=== PATIENT | male | born 2000 | race African-American/Black ===

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

== ENCOUNTER 2020-11-16 16:48 | Inpatient (IN) ==
[2020-11-16 17:38] LABS: Basophils # (auto) 0.01 K/uL (0-0.2); Basophils % (auto) 0.1 %; Eosinophils # (auto) 0.03 K/uL (0-0.5); Eosinophils % (auto) 0.4 %; Hematocrit (blood only) 41.6 % (42-52); Immature Granulocytes # (auto) 0.01 K/uL (0.00-0.02); Immature Granulocytes % (auto) 0.1 %; Lymphocytes # (auto) 0.91 K/uL (1.2-3.4); Lymphocytes % (auto) 11.3 %; Mean Corpuscular Hemoglobin 31.7 pg (25-34); Mean Corpuscular Hgb Conc 36.1 g/dL (32-36); Mean Corpuscular Volume 87.9 fL (80-100); Mean Platelet Volume 11.3 fL (7.4-10.4); Monocytes # (auto) 0.47 K/uL (0.11-0.59); Monocytes % (auto) 5.8 %; Neutrophils # (auto) 6.63 K/uL (1.4-6.5); Neutrophils % (auto) 82.3 %; Platelet Count 183 K/uL (130-400); RDW Coefficient of Variation 11.9 % (11.5-14.5); RDW Standard Deviation 38.3 fL (36.4-46.3); Red Blood Count 4.73 M/uL (4.7-6.1); White Blood Count 8.06 K/uL (4.8-10.8)
--- NOTE | 2020-11-16 17:44 | Emergency Department Note ---
Impression & Plan Mood disorder, High serum chloride ED Provider Note NAME: MARQUIS ROMERO AGE: 20 SEX: M : 2000 ARRIVES VIA: [employer] INFORMANT: Patient ED PROVIDER(S): Campos Meeks DO CHIEF COMPLAINT: Mood disorder HPI: Patient is a 20-year-old male who presents to ER for mood disorder. He notes that he lives with his ex-girlfriend. They have been together for 5 years. The past 2 have not been great for him. He notes that tonight he helped take her car out. She tried to leave and get stuck again. She left her apple watch in the apartment. When he went back up he got into the apple watch and she noticed it. She became extremely upset and escalated from there. She called her family and informed them of what happened. He was very upset as he wanted to continue to have some sort of relationship with her even though they are broken up. He has a history of severe depression. He notes he grabbed a knife and was going to cut his forearm so he could feel pain. Adamantly denies wanting to kill himself. Later we were informed from the girlfriend that he wrote a suicide note. He eventually elaborated stating that he did have a plan and did discuss medications that he would take. ROS: See above HPI for pertinent positives & negatives. A total of 10 systems reviewed and were otherwise negative. PAST MEDICAL HISTORY:See Below PAST SURGICAL HISTORY:See Below FAMILY HISTORY:See Below SOCIAL HISTORY:See Below HOME MEDICATIONS:See Below ALLERGIES:See Below VITALS:See Below PHYSICAL EXAMINATION: GENERAL: Sitting up in bed, alert, well appearing, well nourished, no distress, non-toxic EYE EXAM: normal conjunctiva. OROPHARYNX: no exudate, no erythema, lips, buccal mucosa, and tongue normal and mucous membranes are moist NECK: supple, no nuchal rigidity, no adenopathy, non-tender LUNGS: Clear to auscultation. Normal chest wall mechanics HEART: no murmurs, S1 normal and S2 normal ABDOMEN: abdomen soft, non-tender, normo-active bowel sounds, no masses, no rebound or guarding. BACK: Back is symmetrical on inspection and there is no deformity, no midline tenderness, no CVA tenderness. SKIN: no rashes and no bruising UPPER EXTREMITIES: upper extremities are grossly normal. LOWER EXTREMITIES: No pitting edema. NEURO EXAM: Normal sensorium, cranial nerves II-XII grossly intact, normal speech, no gross weakness of arms, no gross weakness of legs. PSYCH: Denies any suicidal homicidal ideations. Denies any auditory or visual h allucinations. Admits to a thought of wanting to hurt himself to feel pain MEDICAL DECISION MAKING: Patient is a 20-year-old male who got into an argument with his ex-girlfriend who he lives with and wrote a suicide note. He was brought in willingly by police. We were initially unaware the suicide note until the girlfriend called in and notified of this and then he did inform us of this. Initially denied any suicidal homicidal ideations. No auditory visual hallucinations. Labs show no significant leukocytosis or anemia. BMP with slightly elevated chloride. LFTs bilirubin TSH was unremarkable. UA was negative. Tox was negative. Covid was negative. Patient was seen and evaluated and accepted 3 S. on 0201. Triage Nursing notes reviewed. Prior medical records reviewed Vital Signs: reviewed and remarkable for tachy Differential diagnosis: Mood disorder, infection, hypoglycemia, electrolyte abnormalities, cardiac sources, intracerebral event, toxicologic, trauma, neurologic, as well as other pathologies. ER treatment provided: See below Diagnostics interpreted by me: ECG: none Laboratory studies: As stated above and show below. Imaging studies: See below Consultation(s): none ED COURSE: Procedures: none Critical Care: None Past Med/Surg History Social History Smoking Status: Never smoker Feels Safe at Home: Yes Allergies Allergies Allergy/AdvReac Type Severity Reaction Status Date / Time No Known Drug Allergies Allergy Unknown . Verified 07/13/18 18:04 Home Meds Home Medications Medication Instructions Recorded Confirmed escitalopram oxalate [Lexapro] 10 mg PO DAILY 11/16/20 11/16/20 Results & Data (ED) Vital Signs Vital Signs - 24 hr 11/16/20 16:58 11/16/20 18:42 Temperature 37.2 C Temperature Source Oral Pulse Rate 111 H Pulse Rate [Apical] 98 H Respiratory Rate 18 18 Blood Pressure 108/66 Blood Pressure [Left Arm] 112/70 Blood Pressure Mean 80 Blood Pressure Mean [Left Arm] 84 Pulse Oximetry 96 100 Oxygen Delivery Method Room Air Room Air Sepsis Recent Fever Within 48 Hours No Sepsis New/Unexplained Change in Mental Status No Sepsis Action Taken by Nursing No Action Required Laboratory Data Result diagrams: 11/16/20 17:19 11/16/20 17:19 Lab Results 11/16/20 11/16/20 11/16/20 Range/Units 17:19 17:19 17:19 WBC 8.06 (4.8-10.8) K/uL RBC 4.73 (4.7-6.1) M/uL Hgb 15.0 (14.0-18.0) g/dL Hct 41.6 L (42-52) % MCV 87.9 (80-100) fL MCH 31.7 (25-34) pg MCHC 36.1 H (32-36) g/dL RDW Std Deviation 38.3 (36.4-46.3) fL RDW Coeff of Jay 11.9 (11.5-14.5) % Plt Count 183 (130-400) K/uL MPV 11.3 H (7.4-10.4) fL Immature Gran % (Auto) 0.1 % Neut % (Auto) 82.3 % Lymph % (Auto) 11.3 % [place] % (Auto) 5.8 % Eos % (Auto) 0.4 % Baso % (Auto) 0.1 % Neut # (Auto) 6.63 H (1.4-6.5) K/uL Lymph # (Auto) 0.91 L (1.2-3.4) K/uL [place] # (Auto) 0.47 (0.11-0.59) K/uL Eos # (Auto) 0.03 (0-0.5) K/uL Baso # (Auto) 0.01 (0-0.2) K/uL Immature Gran # (Auto) 0.01 (0.00-0.02) K/uL Sodium 142 (136-145) mmol/L Potassium 3.8 (3.5-5.1) mmol/L Chloride 108 H (98-107) mmol/L Carbon Dioxide 29 (21-32) mmol/L Anion Gap 5.0 (3-11) BUN 12 (7-18) mg/dl Creatinine 0.95 (0.6-1.4) mg/dl Est Cr Clr Drug Dosing 135.0 ml/min Est GFR ( Amer) 132.1 Est GFR (Non-Af Amer) 114.0 BUN/Creatinine Ratio 12.5 (10-20) Glucose 101 H (70-99) mg/dl Calcium 9.1 (8.5-10.1) mg/dl Total Bilirubin 0.4 (0.2-1) mg/dl AST 12 L (15-37) U/L ALT 27 (12-78) U/L Alkaline Phosphatase 76 (45-117) U/L Total Protein 7.8 (6.4-8.2) gm/dl Albumin 4.5 (3.4-5.0) gm/dl Globulin 3.3 (2.5-4.0) gm/dl Albumin/Globulin Ratio 1.4 (0.9-2) TSH 1.200 (0.300-4.500) uIu/ml Urine Color Urine Appearance (Clear) Urine pH (4.5-7.5) Ur Specific [place] (1.000-1.030) Urine Protein (Negative) Urine Glucose (UA) (Negative) Urine Ketones (Negative) Urine Blood (Negative) Urine Nitrite (Negative) Urine Bilirubin (Negative) Urine Urobilinogen (Negative) Ur Leukocyte Esterase (Negative) Urine WBC (Auto) (0-5) /hpf Urine RBC (Auto) (0-4) /hpf U Hyaline Cast (Auto) (0-5) /lpf U Epithel Cells (Auto) (0-5) /lpf Urine Bacteria (Auto) (Negative) Salicylates < 1.7 L (2.8-20) mg/dl Urine Opiates Screen (Neg) Ur Methadone, Qual (Neg) Acetaminophen < 2 L (10-30) ug/ml Urine Barbiturates (Neg) Ur Phencyclidine (PCP) (Neg) U Amphetamin/Meth Scrn (Neg) MDMA (Ecstasy) Screen (Neg) U Benzodiazepines Scrn (Neg) Ur Cocaine Metabolite (Neg) U Marijuana (THC) Screen (Neg) Ethyl Alcohol mg/dL (0-3) mg/dl SARS-CoV-2 Ag (Rapid) (Negative) 11/16/20 11/16/20 11/16/20 Range/Units 17:19 17:40 17:40 WBC (4.8-10.8) K/uL RBC (4.7-6.1) M/uL Hgb (14.0-18.0) g/dL Hct (42-52) % MCV (80-100) fL MCH (25-34) pg MCHC (32-36) g/dL RDW Std Deviation (36.4-46.3) fL RDW Coeff of Jay (11.5-14.5) % Plt Count (130-400) K/uL MPV (7.4-10.4) fL Immature Gran % (Auto) % Neut % (Auto) % Lymph % (Auto) % [place] % (Auto) % Eos % (Auto) % Baso % (Auto) % Neut # (Auto) (1.4-6.5) K/uL Lymph # (Auto) (1.2-3.4) K/uL [place] # (Auto) (0.11-0.59) K/uL Eos # (Auto) (0-0.5) K/uL Baso # (Auto) (0-0.2) K/uL Immature Gran # (Auto) (0.00-0.02) K/uL Sodium (136-145) mmol/L Potassium (3.5-5.1) mmol/L Chloride (98-107) mmol/L Carbon Dioxide (21-32) mmol/L Anion Gap (3-11) BUN (7-18) mg/dl Creatinine (0.6-1.4) mg/dl Est Cr Clr Drug Dosing ml/min Est GFR ( Amer) Est GFR (Non-Af Amer) BUN/Creatinine Ratio (10-20) Glucose (70-99) mg/dl Calcium (8.5-10.1) mg/dl Total Bilirubin (0.2-1) mg/dl AST (15-37) U/L ALT (12-78) U/L Alkaline Phosphatase (45-117) U/L Total Protein (6.4-8.2) gm/dl Albumin (3.4-5.0) gm/dl Globulin (2.5-4.0) gm/dl Albumin/Globulin Ratio (0.9-2) TSH (0.300-4.500) uIu/ml Urine Color Dark Yellow Urine Appearance Clear (Clear) Urine pH 6.5 (4.5-7.5) Ur Specific [place] 1.035 H (1.000-1.030) Urine Protein Trace H (Negative) Urine Glucose (UA) Negative (Negative) Urine Ketones Trace H (Negative) Urine Blood Negative (Negative) Urine Nitrite Negative (Negative) Urine Bilirubin Negative (Negative) Urine Urobilinogen Negative (Negative) Ur Leukocyte Esterase Negative (Negative) Urine WBC (Auto) 1-5 (0-5) /hpf Urine RBC (Auto) 0-4 (0-4) /hpf U Hyaline Cast (Auto) 10-30 H (0-5) /lpf U Epithel Cells (Auto) 20-30 H (0-5) /lpf Urine Bacteria (Auto) Negative (Negative) Salicylates (2.8-20) mg/dl Urine Opiates Screen Neg (Neg) Ur Methadone, Qual Neg (Neg) Acetaminophen (10-30) ug/ml Urine Barbiturates Neg (Neg) Ur Phencyclidine (PCP) Neg (Neg) U Amphetamin/Meth Scrn Neg (Neg) MDMA (Ecstasy) Screen Neg (Neg) U Benzodiazepines Scrn Neg (Neg) Ur Cocaine Metabolite Neg (Neg) U Marijuana (THC) Screen Neg (Neg) Ethyl Alcohol mg/dL < 3.0 (0-3) mg/dl SARS-CoV-2 Ag (Rapid) (Negative) 11/16/20 Range/Units 19:38 WBC (4.8-10.8) K/uL RBC (4.7-6.1) M/uL Hgb (14.0-18.0) g/dL Hct (42-52) % MCV (80-100) fL MCH (25-34) pg MCHC (32-36) g/dL RDW Std Deviation (36.4-46.3) fL RDW Coeff of Jay (11.5-14.5) % Plt Count (130-400) K/uL MPV (7.4-10.4) fL Immature Gran % (Auto) % Neut % (Auto) % Lymph % (Auto) % [place] % (Auto) % Eos % (Auto) % Baso % (Auto) % Neut # (Auto) (1.4-6.5) K/uL Lymph # (Auto) (1.2-3.4) K/uL [place] # (Auto) (0.11-0.59) K/uL Eos # (Auto) (0-0.5) K/uL Baso # (Auto) (0-0.2) K/uL Immature Gran # (Auto) (0.00-0.02) K/uL Sodium (136-145) mmol/L Potassium (3.5-5.1) mmol/L Chloride (98-107) mmol/L Carbon Dioxide (21-32) mmol/L Anion Gap (3-11) BUN (7-18) mg/dl Creatinine (0.6-1.4) mg/dl Est Cr Clr Drug Dosing ml/min Est GFR ( Amer) Est GFR (Non-Af Amer) BUN/Creatinine Ratio (10-20) Glucose (70-99) mg/dl Calcium (8.5-10.1) mg/dl Total Bilirubin (0.2-1) mg/dl AST (15-37) U/L ALT (12-78) U/L Alkaline Phosphatase (45-117) U/L Total Protein (6.4-8.2) gm/dl Albumin (3.4-5.0) gm/dl Globulin (2.5-4.0) gm/dl Albumin/Globulin Ratio (0.9-2) TSH (0.300-4.500) uIu/ml Urine Color Urine Appearance (Clear) Urine pH (4.5-7.5) Ur Specific [place] (1.000-1.030) Urine Protein (Negative) Urine Glucose (UA) (Negative) Urine Ketones (Negative) Urine Blood (Negative) Urine Nitrite (Negative) Urine Bilirubin (Negative) Urine Urobilinogen (Negative) Ur Leukocyte Esterase (Negative) Urine WBC (Auto) (0-5) /hpf Urine RBC (Auto) (0-4) /hpf U Hyaline Cast (Auto) (0-5) /lpf U Epithel Cells (Auto) (0-5) /lpf Urine Bacteria (Auto) (Negative) Salicylates (2.8-20) mg/dl Urine Opiates Screen (Neg) Ur Methadone, Qual (Neg) Acetaminophen (10-30) ug/ml Urine Barbiturates (Neg) Ur Phencyclidine (PCP) (Neg) U Amphetamin/Meth Scrn (Neg) MDMA (Ecstasy) Screen (Neg) U Benzodiazepines Scrn (Neg) Ur Cocaine Metabolite (Neg) U Marijuana (THC) Screen (Neg) Ethyl Alcohol mg/dL (0-3) mg/dl SARS-CoV-2 Ag (Rapid) Negative (Negative) Discharge Plan Visit Data Chief Complaint: Mental Health Evaluation Stated Complaint: [facility] ED Provider: Campos Meeks Discharge Problem: Mood disorder, High serum chloride Forms Stand Alone Forms: My [facility], Suicide Prevention Resources Prescriptions Prescriptions: No Action escitalopram oxalate [Lexapro] 10 mg tablet 10 mg PO DAILY RF: 0
[2020-11-16 17:58] LABS: Appearance Urine Clear (Clear); Bacteria Urine Automated Negative (Negative); Blood Urine Negative (Negative); Color Urine Dark Yellow; Epithelial Cell Urine Auto 20-30 /lpf (0-5); Glucose Urine UA Negative (Negative); Ketones Urine Trace (Negative); Leukocyte Esterase Urine Negative (Negative); Nitrite Urine Negative (Negative); Protein Urine Trace (Negative); RBC Urine Automated 0-4 /hpf (0-4); Specific Gravity Urine 1.035 (1.000-1.030); Urobilinogen Urine Negative (Negative); pH Urine 6.5 (4.5-7.5)
[2020-11-16 17:58] LABS: Albumin Level 4.5 gm/dl (3.4-5.0); BUN Creatinine Ratio 12.5 (10-20); Calcium 9.1 mg/dl (8.5-10.1); Est GFR (African American) 132.1; Potassium 3.8 mmol/L (3.5-5.1)
[2020-11-16 18:05] LABS: Bilirubin Urine Negative (Negative); Ictotest Urine Negative (Negative)
[2020-11-16 18:09] LABS: Albumin Globulin Ratio 1.4 (0.9-2); Bilirubin,Total 0.4 mg/dl (0.2-1); Globulin 3.3 gm/dl (2.5-4.0); Thyroid Stimulating Hormone 1.2 uIu/ml (0.300-4.500); Total Protein 7.8 gm/dl (6.4-8.2)
[2020-11-16 18:11] LABS: Acetaminophen < 2 ug/ml (10-30); Salicylate < 1.7 mg/dl (2.8-20)
[2020-11-16 18:25] LABS: Amphetamines+Metham, Urine Neg (Neg); Barbiturates, Urine Neg (Neg); Benzodiazepine, Urine Neg (Neg); Cocaine, Urine Neg (Neg); MDMA (Ecstacy), Urine Neg (Neg); Methadone, Urine Neg (Neg); Opiate, Urine Neg (Neg); Phencyclidine, Urine Neg (Neg)
[2020-11-16] MEDS ORDERED: ACETAMINOPHEN 325 MG TAB PO PRN (22:04)
[2020-11-16] MEDS ORDERED: hydrOXYzine HCl 25 MG TAB PO PRN ×2 (22:04)
[2020-11-16] MEDS ORDERED: SODIUM CHLORIDE 0.65% NA SOLN 45 ML (OCEAN) PRN (22:04)
[2020-11-16] MEDS ORDERED: BISMUTH SUBSALICYLATE LIQD 236 ML PO PRN (22:04)
[2020-11-16] MEDS ORDERED: ALUMINUM/MAGNESIUM SUSP 30 ML UDC PO PRN (22:04)
[2020-11-16] MEDS ORDERED: MAGNESIUM HYDROXIDE SUSP 30 ML UDC PO PRN (22:04)
[2020-11-16] MEDS ORDERED: ESCITALOPRAM OXALATE 10 MG TAB PO SCH (22:30)
--- NOTE | 2020-11-17 13:12 | History & Physical ---
Date of Service November 17, 2020 Impression / Recommendations Impression This 20-year-old college senior reports a long history of recurrent depression. The episodes of depression are often triggered or mitigated by situational factors, and the triggers that are described by the patient seem to center around themes of loss, abandonment, isolation, feelings of inadequacy, and high expressed emotions. He has had approximately 1 year trial of Lexapro 10 mg daily, as prescribed by a primary care physician in his hometown of [place], [place]. He indicates that initially and for a number of months he felt that Lexapro was "definitely" helping him to a significant degree with his depression, has difficulty regulating his mood, and his anxiety. However, for a number of months recently he has noticed that his depression and anxiety have worsened, and he no longer feels that he is receiving substantial benefit from Lexapro 10 mg a day. However, it must be noted that, at least based on what the patient is telling us, his level of functioning is generally quite adequate and the current situation was brought about by a romantic disappointment. Again based on what the patient is saying, the break-up with his girlfriend of at least 5 years was particularly painful because it was unexpected, because he considers himself to be deeply in love with her, she has lived with him (at first and his mother's home, and more recently with him in an apartment in [place]) for the past 5 years, and when talking during today's evaluation about the girlfriend's decision to end the relationship and "move out" he spontaneously referenced the fact that his father had abandoned the family and subsequently never contacted the patient or offered any evidence of interest. The patient is clearly very intelligent, and has expressed an interest in cognitive behavioral therapy. His primary interest at this point is in finding improved individual coping strategies that will allow him to better manage his overwhelming feelings when "triggered" as described above. He also reports a history of responding favorably to Lexapro 10 mg, and the dose was never titrated after the initial benefit seems to have dissipated. The patient was provided with information regarding alternative treatments, including a different antidepressant medication, adjunctive ("booster") medications for Lexapro, and the addition of a mood stabilizer. After consideration of the options, the patient said that he would like to first try an increase in the dose of Lexapro and then would consider other interventions. He also emphasizes that he wants help finding a therapist locally (1) Major depression: 11/17 -The patient has been admitted to the locked inpatient psychiatric unit at [facility]. He will be offered and encouraged to actively participate in various modalities of psychiatric treatment and education, including individual, group, family, and recreational therapies. He will also be offered psychiatric chemotherapy. He will also be observed closely because of his threat of intentional self injury. Because the patient has advised us that his depression is often exacerbated by various emotional triggers (as de scribed above) we will focus on teaching the patient improved individual coping strategies. -Because the patient has a history of febrile response to Lexapro 10 mg a day, despite the current exacerbation in his symptoms, we will increase the dose of Lexapro to a dose of 20 mg a day, beginning tonight. The patient reports that his only noted side effect is periodic delayed orgasm. Material risks and anticipated benefits of Lexapro were reviewed with the patient and he indicated understanding. -We also talked about the possibility of introducing a mood stabilizer or another psychiatric medication to serve as an adjunct to Lexapro. Also, we reviewed the options of different antidepressant medications, including other selective serotonin reuptake inhibitors as well as selective norepinephrine reuptake inhibitors. Major depression recurrence: recurrent Active/Remission status: currently active Major depression episode severity: severe Psychotic features: without psychotic features Qualified Code(s): F33.2 - Major depressive disorder, recurrent severe without psychotic features (2) Suicidal behavior: 11/17 -In this case, the admission was precipitated by an episode during which the patient threatened to deliberately harm himself while holding a knife, pursuant to an ongoing argument with his now ex-girlfriend. The patient may be minimizing this episode because his ex-girlfriend did find a note that indicated that he was contemplating harming himself with a knife. The patient, however, says that he was not contemplating suicide, but, instead, was trying to find a way of relieving emotional pain through superficial self-cutting. This will need to be further investigated and collateral information obtained, most likely from his former girlfriend. -The patient describes a history of impulsive behaviors when under emotional distress. He also says that he has never intentionally cause himself physical harm, and has never seriously contemplated suicide. Nevertheless, inpatient psychiatric treatment and the availability of the full spectrum of psychiatric services 24 hours a day is medically necessary because of the severity of his illness, his worsening depression, his substantial psychosocial stressors, and evidence that the threat of harming himself with a kitchen knife was not simply an impulsive act, as evidenced by the note referenced by his girlfriend. Attempted self-injury: without attempted self-injury Qualified Code(s): R45.89 - Other symptoms and signs involving emotional state Present on Admission?: Yes Inventory Assets Strengths: Intelligent. Motivated to treatment. History of favorable response to antidepressant medications. Supportive family. Supportive friendships. Goal oriented. Needs: Mood stabilization and reduction in impulsive behaviors and depression Risk Factors Assessment History of threats of self-harm. Recent romantic disappointment. Recurrent depression since childhood. Male: Yes : No Do You Have Access To A Gun?: No Health Problems: No Mental Health Diagnoses: Yes Substance Use Disorders: No Previous Attempt: No Family History of Suicide: No Previous Psychiatric Hospitalization: No Hopelessness: No Smoker: No Protective Factors Assessment Anabaptist Beliefs: No : No Responsible for Young Children: No Employed: No Stable Relationships: Yes Supportive Family: Yes Good Rapport with Provider: No Absence of Any Risk Factors Above: No Psychiatric History Identifying Data MARQUIS ROMERO is a 20-year-old M who currently lives in [place] with his ex girlfriend. He has a history of recurrent depression and was admitted on 11/16/20 21:50 on a 201 voluntary agreement after he picked up a knife and threatened to cut himself following a disagreement with the ex-girlfriend. Chief Complaint " Depression. Anxiety. 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 He presented to the emergency room for evaluation after he reportedly picked up a kitchen knife and threatened to cut himself with it, pursuant to an argument that he had had with a woman who had just recently become his former girlfriend. The patient reports that he has suffered from recurrent episodes of depression throughout much of his life, and his feelings of depression are often exacerbated by circumstances that caused him to feel isolated, abandoned, or inadequate. He acknowledges that in many instances these feelings represent a distortion of the reality, but he adds that when one of his "triggers" occurs, he has a great deal of difficulty coping and reducing his impulse to act impulsively. By way of background, the patient reports that he was raised by a single mother in [place], [place]. His father left the family when the patient was 1 years old, and the patient has no memory of his father. However, the patient says that he has had thoughts throughout the years that there might have been something wrong with him; i.e., the patient, because his father obviously did not want to be part of the patient's life in any way. He describes his childhood as being free of abuse or neglect, but he also notes that because his mother was single and the sole support of the family (the family consisting of the patient and his mother) she worked much of the time. There were no second-degree relatives such as grandparents to assist, and so he often spent time in daycare and, later on, became a "latchkey kid." Feelings of depression began fairly early in childhood and included depressed mood, crying spells, psychosocial withdrawal, poor concentration, anhedonia, and anxious distress. When he was about 15 years old his high school girlfriend came to live with the patient and his mother after the girlfriend was orphaned. (The patient reports that the girlfriend's father had when she was a child, and her mother of an accidental drug overdose when the girlfriend was 15.) Subsequent to this, the patient lived with his girlfriend, and first at home with his mother (and, later, when a sibling was born when the patient was 16) and, more recently, in [place] while the patient attended school at [employer]. According to the patient, about a week or so ago the girlfriend approached him and told him that she wanted to end the relationship because she had never experienced being on her own, and she would like to experiment in this regard. The patient reports that this announcement came as quite a shock to him and he wondered about the reasons for her making such a decision while he was under a great deal of stress because it was "." Reportedly, the girlfriend left the home for 1 day, but returned the next day and announced that she plan to continue to share the dwelling with the patient, but that this would be without any attendant romantic involvement. The patient notes that he attempted to seek clarification about this, and specifically ask if the arrangement would be that they were to live together, but they could both find alternative romantic partners. He notes that her response was very confusing because she said that she was not interested in finding "someone else," and added that if she were to be looking for a romance that would be with no one other than with him, with reference to the patient. At some point, within the context of the above circumstances, the patient and his girlfriend had a heated argument, and it was within that context that the patient became so distressed that, according the patient, he did steel pickler a knife and threatened to cut himself with it. However, he notes that his intent was not to commit suicide but, rather, to superficially cut himself in order to relieve emotional distress/pain. Nevertheless, the patient notes that even if not actively suicidal he recognizes that his mental health has been deteriorating for at least the past year. His depression has been worse, and his ability to tolerate emotional "triggers" has only worsened. He has been taking Lexapro 10 mg a day as prescribed by the primary care provider about a year ago. The patient notes that he had what he now realizes was probably a placebo effect because he noticed that his mood improved substantially within a day or 2 of starting Lexapro. This time, however, he recognized that his improved mood and anxiety reduction was being sustained, and his conclusion was that Lexapro was offering substantial benefit apart from the initial placebo effect. He had also attempted to enter psychotherapy (in [place]) but said that he felt that he and the therapist were not a good match. He remained in therapy for several months, but eventually quit. Of note is the fact that the patient acknowledges that, recently, he has not been taking his consistently, but may miss "maybe a couple doses" each week. The patient reports that he has never taken any other psychiatric medication and the dose of Lexapro has never been increased beyond 10 mg. For the past several months, at least, the patient says that he no longer feels that Lexapro at 10 mg has been helpful and that he is "just taking it" out of habit. Past Psychiatric History Previous Psych History: The patient has never seen a psychiatrist or other prescribing mental health professional. He has, however, been followed on an outpatient basis by his primary care physician who has prescribed Lexapro. As above, he found that psychotherapy with the chosen provider was not particularly helpful, but he expresses an interest in learning improved coping strategies and possibly in cognitive behavioral therapy with which she has become somewhat familiar. Current Psychiatric Diagnosis: Major depressive disorder, recurrent, severe without psychotic feature Outpatient Services: Lexapro 10 mg prescribed by his outpatient physician in [place], [place]. As above, there was also a relatively brief course of outpatient treatment with therapist, also in [place]. Previous Psych Admissions: None Do You Have Access To A Gun?: No History of Previous Suicide Attempt: No Describe Attempts in the Past: Denies Past Medication Trials: Lexapro 10 mg daily. No other psychiatric chemotherapy has been attempted. Past Head Trauma/Neuro History History of Concussion/Seizure: Yes The patient reports that he believes that he may have had a concussion as a young child, but is not certain in this regard. There is no history of seizures. Allergies Allergy/AdvReac Type Severity Reaction Status Date / Time No Known Drug Allergies Allergy Unknown . Verified 07/13/18 18:04 Home Medications Medication Instructions Recorded Confirmed Type escitalopram oxalate [Lexapro] 10 mg PO DAILY 11/16/20 11/16/20 History Family History Family History of: Depression and None Alcohol History Hx of Alcohol Use Over the Past 12 Months: Yes AUDIT Total Score: 2 Smoking Use Have You Smoked or Used Tobacco Products in the Last 30 Days: No Smoking Status: Never smoker Substance History Hx of Prescription Med Misuse Over the Past 12 Months: No Hx of Over the Counter Med Misuse Over the Past 12 Months: No Hx of Inhalent Misuse Over the Past 12 Months: No Hx of Organic Substance Use Over the Past 12 Months: No Hx of Illegal Substances/Street Drug Use Over Past 12 Months: No Problems as a Result of Past Substance Use: None Identified Personal History Living Arrangements: Apartment Living Arrangements Comments: The patient reports that for the past 5 years he has been living with his girlfriend. The girlfriend became his "ex-girlfriend" approximately a week ago, but they are continuing to live together Born In: Near [place], [place]. In an apartment. Childhood: No history of trauma or abuse. However, he was somewhat isolated during childhood because his mother was single and the sole support of the family, so she was often at work, and the patient was cared for in daycare or, as he got older, he was on his own at home. 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 His plans are to continue his education and obtain a PhD in physics. Employment Status: Student Beliefs That Will Affect Care: None (The patient says that he believes in a higher power or that there is "something," but he does not describe himself as being jainism.) Current Legal Problems: No Hx Legal Problems: No Hx Traumatic Life Events: No Patient History Social History Smoking Status: Never smoker Preferred Language: American Communication Ability: Effective Slide Developer Required: No Beliefs That Will Affect Care: None Feels Safe at Home: Yes Assistive Devices: Glasses Review of Systems Review of Systems: All systems reviewed & are unremarkable except as noted in HPI & below At least 10 systems were reviewed today as part of the psychiatric assessment. Is fairly recent history of idiopathic abdominal pain is noted. Otherwise, the review of systems is unremarkable. The physical examination and review of systems completed in the emergency department immediately prior to admission has been reviewed and is excepted for purposes of medical clearance to the behavioral health unit. Physical Exam Psychiatric: Orientation: alert, oriented x 3 and cooperative Apperance: appropriately dressed, appropriately groomed and appeared stated age Eye Contact: + fair eye contact Motor Behavior: steady gait and station Serious, dysthymic. Mood: + depressed mood and + anxious mood Thought Process: goal directed thought process, linear/logical thought process and clear/coherent thought process Thought Content: reality based without del usions Suicidal Thoughts: denies suicidal thoughts The patient insists that he did not intend suicide when he threatened himself with a knife in front of his girlfriend prior to admission. However, his impulsivity and worsening depression are clinically significant medicating factors. Homicidal Thoughts: denies homicidal thoughts Hallucinations: no auditory hallucinations and no visual hallucinations Cognition: recent memory grossly intact, remote memory grossly intact, attention grossly intact and language grossly intact Estimated Intelligence: + above average estimated intelligence Insight: good insight Judgement: + limited judgement Patient presents as committed to treatment and recovery. He also understands that he has recently demonstrated poor judgment. As noted above, the patient's judgment and self position appear to be situationally dependent, and he is currently going through an emotionally distressful time. Vital Signs (Past 24 Hours): Last Vital Signs Temp 36.7 C 11/17/20 06:35 Pulse 86 11/17/20 06:36 Resp 17 11/17/20 06:35 BP 131/88 11/17/20 06:36 Pulse Ox 98 11/16/20 21:45 Results & Data ([facility]) Laboratory Results Laboratory Results - last 24 hr 11/16/20 11/16/20 11/16/20 17:19 17:19 17:19 WBC 8.06 RBC 4.73 Hgb 15.0 Hct 41.6 L MCV 87.9 MCH 31.7 MCHC 36.1 H RDW Std Deviation 38.3 RDW Coeff of Jay 11.9 Plt Count 183 MPV 11.3 H Immature Gran % (Auto) 0.1 Neut % (Auto) 82.3 Lymph % (Auto) 11.3 [place] % (Auto) 5.8 Eos % (Auto) 0.4 Baso % (Auto) 0.1 Neut # (Auto) 6.63 H Lymph # (Auto) 0.91 L [place] # (Auto) 0.47 Eos # (Auto) 0.03 Baso # (Auto) 0.01 Immature Gran # (Auto) 0.01 Sodium 142 Potassium 3.8 Chloride 108 H Carbon Dioxide 29 Anion Gap 5.0 BUN 12 Creatinine 0.95 Est Cr Clr Drug Dosing 135.0 Est GFR ( Amer) 132.1 Est GFR (Non-Af Amer) 114.0 BUN/Creatinine Ratio 12.5 Glucose 101 H Calcium 9.1 Total Bilirubin 0.4 AST 12 L ALT 27 Alkaline Phosphatase 76 Total Protein 7.8 Albumin 4.5 Globulin 3.3 Albumin/Globulin Ratio 1.4 TSH 1.200 Urine Color Urine Appearance Urine pH Ur Specific [place] Urine Protein Urine Glucose (UA) Urine Ketones Urine Blood Urine Nitrite Urine Bilirubin Urine Urobilinogen Ur Leukocyte Esterase Urine WBC (Auto) Urine RBC (Auto) U Hyaline Cast (Auto) U Epithel Cells (Auto) Urine Bacteria (Auto) Salicylates < 1.7 L Urine Opiates Screen Ur Methadone, Qual Acetaminophen < 2 L Urine Barbiturates Ur Phencyclidine (PCP) U Amphetamin/Meth Scrn MDMA (Ecstasy) Screen U Benzodiazepines Scrn Ur Cocaine Metabolite U Marijuana (THC) Screen Ethyl Alcohol mg/dL SARS-CoV-2 Ag (Rapid) 11/16/20 11/16/20 11/16/20 17:19 17:40 17:40 WBC RBC Hgb Hct MCV MCH MCHC RDW Std Deviation RDW Coeff of Jay Plt Count MPV Immature Gran % (Auto) Neut % (Auto) Lymph % (Auto) [place] % (Auto) Eos % (Auto) Baso % (Auto) Neut # (Auto) Lymph # (Auto) [place] # (Auto) Eos # (Auto) Baso # (Auto) Immature Gran # (Auto) Sodium Potassium Chloride Carbon Dioxide Anion Gap BUN Creatinine Est Cr Clr Drug Dosing Est GFR ( Amer) Est GFR (Non-Af Amer) BUN/Creatinine Ratio Glucose Calcium Total Bilirubin AST ALT Alkaline Phosphatase Total Protein Albumin Globulin Albumin/Globulin Ratio TSH Urine Color Dark Yellow Urine Appearance Clear Urine pH 6.5 Ur Specific [place] 1.035 H Urine Protein Trace H Urine Glucose (UA) Negative Urine Ketones Trace H Urine Blood Negative Urine Nitrite Negative Urine Bilirubin Negative Urine Urobilinogen Negative Ur Leukocyte Esterase Negative Urine WBC (Auto) 1-5 Urine RBC (Auto) 0-4 U Hyaline Cast (Auto) 10-30 H U Epithel Cells (Auto) 20-30 H Urine Bacteria (Auto) Negative Salicylates Urine Opiates Screen Neg Ur Methadone, Qual Neg Acetaminophen Urine Barbiturates Neg Ur Phencyclidine (PCP) Neg U Amphetamin/Meth Scrn Neg MDMA (Ecstasy) Screen Neg U Benzodiazepines Scrn Neg Ur Cocaine Metabolite Neg U Marijuana (THC) Screen Neg Ethyl Alcohol mg/dL < 3.0 SARS-CoV-2 Ag (Rapid) 11/16/20 19:38 WBC RBC Hgb Hct MCV MCH MCHC RDW Std Deviation RDW Coeff of Jay Plt Count MPV Immature Gran % (Auto) Neut % (Auto) Lymph % (Auto) [place] % (Auto) Eos % (Auto) Baso % (Auto) Neut # (Auto) Lymph # (Auto) [place] # (Auto) Eos # (Auto) Baso # (Auto) Immature Gran # (Auto) Sodium Potassium Chloride Carbon Dioxide Anion Gap BUN Creatinine Est Cr Clr Drug Dosing Est GFR ( Amer) Est GFR (Non-Af Amer) BUN/Creatinine Ratio Glucose Calcium Total Bilirubin AST ALT Alkaline Phosphatase Total Protein Albumin Globulin Albumin/Globulin Ratio TSH Urine Color Urine Appearance Urine pH Ur Specific [place] Urine Protein Urine Glucose (UA) Urine Ketones Urine Blood Urine Nitrite Urine Bilirubin Urine Urobilinogen Ur Leukocyte Esterase Urine WBC (Auto) Urine RBC (Auto) U Hyaline Cast (Auto) U Epithel Cells (Auto) Urine Bacteria (Auto) Salicylates Urine Opiates Screen Ur Methadone, Qual Acetaminophen Urine Barbiturates Ur Phencyclidine (PCP) U Amphetamin/Meth Scrn MDMA (Ecstasy) Screen U Benzodiazepines Scrn Ur Cocaine Metabolite U Marijuana (THC) Screen Ethyl Alcohol mg/dL SARS-CoV-2 Ag (Rapid) Negative Current Inpatient Medications Current Inpatient Medications: Current Inpatient Medications Acetaminophen (Acetaminophen 325 Mg Tab) 650 mg PO Q4H PRN PRN Reason: Headache or Minor Fever Stop: 12/16/20 22:03 Al Hydrox/Mg Hydrox/Simethicone (Aluminum/Magnesium Susp 30 Ml Udc) 30 ml PO Q4H PRN PRN Reason: GI Upset Stop: 12/16/20 22:03 Bismuth Subsalicylate (Bismuth Subsalicylate Liqd 236 Ml) 15 ml PO PRN PRN PRN Reason: Loose Stool Stop: 12/16/20 22:03 Escitalopram Oxalate (Escitalopram Oxalate 20 Mg Tab) 20 mg PO HS LIEN Stop: 12/17/20 21:59 Hydroxyzine HCl (Hydroxyzine Hcl 25 Mg Tab) 50 mg PO HSZ PRN PRN Reason: Insomnia Stop: 12/16/20 22:03 Hydroxyzine HCl (Hydroxyzine Hcl 25 Mg Tab) 25 mg PO Q4H PRN PRN Reason: Anxiety Stop: 12/16/20 22:03 Magnesium Hydroxide (Magnesium Hydroxide Susp 30 Ml Udc) 30 ml PO DAILY PRN PRN Reason: Constipation Stop: 12/16/20 22:03 Sodium Chloride (Sodium Chloride 0.65% Na Soln 45 Ml ([place])) 1 - 2 sprays NA PRN PRN PRN Reason: Nasal Dryness/Congestion Stop: 12/16/20 22:03
[2020-11-17] MEDS ORDERED: ESCITALOPRAM OXALATE 10 MG TAB PO SCH (21:00)
[2020-11-17] MEDS: ESCITALOPRAM OXALATE 20 MG TAB PO SCH (21:41)
--- NOTE | 2020-11-18 08:59 | Psychiatric Progress Note ---
Date of Service November 18, 2020 Impression / Recommendations Impression H&P Assessment - This 20-year-old college senior reports a long history of recurrent depression. The episodes of depression are often triggered or mitigated by situational factors, and the triggers that are described by the patient seem to center around themes of loss, abandonment, isolation, feelings of inadequacy, and high expressed emotions. He has had approximately 1 year trial of Lexapro 10 mg daily, as prescribed by a primary care physician in his hometown of [place], [place]. He indicates that initially and for a number of months he felt that Lexapro was "definitely" helping him to a significant degree with his depression, has difficulty regulating his mood, and his anxiety. However, for a number of months recently he has noticed that his depression and anxiety have worsened, and he no longer feels that he is receiving substantial benefit from Lexapro 10 mg a day. However, it must be noted that, at least based on what the patient is telling us, his level of functioning is generally quite adequate and the current situation was brought about by a romantic disappointment. Again based on what the patient is saying, the break-up with his girlfriend of at least 5 years was particularly painful because it was unexpected, because he considers himself to be deeply in love with her, she has lived with him (at first and his mother's home, and more recently with him in an apartment in [place]) for the past 5 years, and when talking during today's evaluation about the girlfriend's decision to end the relationship and "move out" he spontaneously referenced the fact that his father had abandoned the family and subsequently never contacted the patient or offered any evidence of interest. The patient is clearly very intelligent, and has expressed an interest in cognitive behavioral therapy. His primary interest at this point is in finding improved individual coping strategies that will allow him to better manage his overwhelming feelings when "triggered" as described above. He also reports a history of responding favorably to Lexapro 10 mg, and the dose was never titrated after the initial benefit seems to have dissipated. The patient was provided with information regarding alternative treatments, including a different antidepressant medication, adjunctive ("booster") medications for Lexapro, and the addition of a mood stabilizer. After consideration of the options, the patient said that he would like to first try an increase in the dose of Lexapro and then would consider other interventions. He also emphasizes that he wants help finding a therapist locally. Reviewed 11/18 - Patient had productive meeting with mother, who remains supportive. Scheduled family meeting with ex-girlfriend for tomorrow as they will need to discuss his living arrangements on discharge. Pt does report rather dramatic improvement in mood despite just increasing his dose of escitalopram last evening. He reports similar response when the medication was first started. He does not, however, appear overly energize, is not hyperverbal, and is not reporting flight of ideas or intense goal-directed activity that would suggest acute activation or possible deion. Denying SI presently, aftercare appointments are not yet secured. (1) Major depression: 11/17 -The patient has been admitted to the [facility] inpatient psychiatric unit at [facility]. He will be offered and encouraged to actively participate in various modalities of psychiatric treatment and education, including individual, group, family, and recreational therapies. He will also be offered psychiatric chemotherapy. He will also be observed closely because of his threat of intentional self injury. Because the patient has advised us that his depression is often exacerbated by various emotional triggers (as described above) we will focus on teaching the patient improved individual coping strategies. -Because the patient has a history of febrile response to Lexapro 10 mg a day, despite the current exacerbation in his symptoms, we will increase the dose of Lexapro to a dose of 20 mg a day, beginning tonight. The patient reports that his only noted side effect is periodic delayed orgasm. Material risks and anticipated benefits of Lexapro were reviewed with the patient and he indicated understanding. -We also talked about the possibility of introducing a mood stabilizer or another psychiatric medication to serve as an adjunct to Lexapro. Also, we reviewed the options of different antidepressant medications, including other selective serotonin reuptake inhibitors as well as selective norepinephrine reuptake inhibitors. 11/18 - Continue escitalopram 20mg qHS - patient denies side effects related to titration of the dose, and is pleased he is feeling more alert. He asked appropriate questions about his medication regimen which were answered. - (2) Suicidal behavior: 11/17 -In this case, the admission was precipitated by an episode during which the patient threatened to deliberately harm himself while holding a knife, pursuant to an ongoing argument with his now ex-girlfriend. The patient may be minimizing this episode because his ex-girlfriend did find a note that indicated that he was contemplating harming himself with a knife. The patient, however, says that he was not contemplating suicide, but, instead, was trying to find a way of relieving emotional pain through superficial self-cutting. This will need to be further investigated and collateral information obtained, most likely from his former girlfriend. -The patient describes a history of impulsive behaviors when under emotional distress. He also says that he has never intentionally cause himself physical harm, and has never seriously contemplated suicide. Nevertheless, inpatient psychiatric treatment and the availability of the full spectrum of psychiatric services 24 hours a day is medically necessary because of the severity of his illness, his worsening depression, his substantial psychosocial stressors, and evidence that the threat of harming himself with a kitchen knife was not simply an impulsive act, as evidenced by the note referenced by his girlfriend. 11/18 - Pt denies SI since admission. - Attending group programming and working on development of healthy and effective coping strategies - Family meeting with mother today via phone, planning for meeting with his ex- girlfriend (with whom he resides) tomorrow to discuss discharge situation Inventory Assets Strengths: Intelligent. Motivated to treatment. History of favorable response to antidepressant medications. Supportive family. Supportive friendships. Goal oriented. Needs: Mood stabilization and reduction in impulsive behaviors and depression Risk Factors Assessment Male: Yes : No Do You Have Access To A Gun?: No Health Problems: No Mental Health Diagnoses: Yes Substance Use Disorders: No Previous Attempt: No Family History of Suicide: No Previous Psychiatric Hospitalization: No Hopelessness: No Smoker: No Protective Factors Assessment Druze Beliefs: No : No Responsible for Young Children: No Employed: No Stable Relationships: Yes Supportive Family: Yes Good Rapport with Provider: No Absence of Any Risk Factors Above: No Interval History Identifying Information MARQUIS ROMERO is a 20-year-old M who currently lives in [place] with his ex girlfriend. He has a history of recurrent depression and was admitted on 11/16/20 21:50 on a 201 voluntary agreement after he picked up a knife and threatened to cut himself following a disagreement with the ex-girlfriend. Chief Complaint "Um, I'm actually feeling really good today." Review of Systems Notes Constitutional: denied Cardiovascular: denied Respiratory: denied Gastrointestinal: denied Neurological: denied Psychiatric: denies symptoms other than stated above Total of at least 10 systems reviewed, pertinent positives as above and in HPI. Sleep Information Total Hours of Sleep: 5.5 Meal Information Percent Meal Consumed - Breakfast: 100 Percent Meal Consumed - Lunch: 100 Percent Meal Consumed - Dinner: 100 Subjective Subjective Patient was seen & assessed and interval progress reviewed with nursing and social work. Staff report the patient has been out of his room attending groups and is interactive with peers. Pt had a meeting with his mother this afternoon, and will likely require a meeting with his ex-girlfriend as well as they are living together. Pt rated his mood an 8/10 and "optimistic and uncertain" last evening. Pt was seen today to assess progress since admission. The patient states he is "feeling really good today." He states he is surprised that he is not feeling drowsy, as this had been a presumed side effect when escitalopram was first started. Pt states that this hospital experience is the first time he has "really truly talked with anyone. I realized it's my communication skills that are lacking." Pt states that some aspects of the relationship with his ex-girlfriend were "one sided", as he felt uncomfortable and unable to openly discuss some important topics. The patient states the meeting with his mother went well, and he has scheduled a meeting with his ex- girlfriend as well to discuss the status of their friendship and living situation after this incident. The patient states he has been reading the work- book and is able to recognize some cognitive distortions that were present. He states "I really felt that when we were fighting, that my family was being ripped apart. She is so important to all of us, that I just overreacted." The patient denies any suicidality since admission. He admits that he is still stressed about the idea of discharge and having to return to his final exams, but is happy for the referral to [facility]. Pt is hopeful for a discharge Friday, but recognizes the need to ensure stability of mood and secure appropriate aftercare appointments. He denies other needs at this time. Physical Exam Psychiatric Orientation: alert, oriented x 3 and cooperative (and pleasant ) Apperance: appropriately dressed, appropriately groomed and appeared stated age Eye Contact: good eye contact Motor Behavior: steady gait and station and no abnormal motor movements Speech: normal rate/rhythm/volume of speech Affect: + blunted affect (subdued, but not overtly depressed) Mood: no depressed mood ("feeling really good") Thought Process: goal directed thought process and clear/coherent thought process Thought Content: reality based without delusions; no hopelessness and no worthlessness Suicidal Thoughts: denies suicidal thoughts and denies suicidal intent Homicidal Thoughts: denies homicidal thoughts Hallucinations: no auditory hallucinations and no visual hallucinations Cognition: recent memory grossly intact, attention grossly intact and language grossly intact Estimated Intelligence: consistent with education level Insight: + fair insight Judgement: + fair judgement Vital Signs (Past 24 Hours) Last Vital Signs Temp 36.6 C 11/18/20 06:37 Pulse 92 H 11/18/20 06:38 Resp 16 11/18/20 06:37 BP 129/72 11/18/20 06:38 Pulse Ox 98 11/16/20 21:45 Results & Data ([facility]) Current Inpatient Medications Current Inpatient Medications: Current Inpatient Medications Acetaminophen (Acetaminophen 325 Mg Tab) 650 mg PO Q4H PRN PRN Reason: Headache or Minor Fever Stop: 12/16/20 22:03 Al Hydrox/Mg Hydrox/Simethicone (Aluminum/Magnesium Susp 30 Ml Udc) 30 ml PO Q4H PRN PRN Reason: GI Upset Stop: 12/16/20 22:03 Bismuth Subsalicylate (Bismuth Subsalicylate Liqd 236 Ml) 15 ml PO PRN PRN PRN Reason: Loose Stool Stop: 12/16/20 22:03 Escitalopram Oxalate (Escitalopram Oxalate 20 Mg Tab) 20 mg PO HS LIEN Stop: 12/17/20 21:59 Last Admin: 11/17/20 21:41 Dose: 20 mg Documented by: Hydroxyzine HCl (Hydroxyzine Hcl 25 Mg Tab) 50 mg PO HSZ PRN PRN Reason: Insomnia Stop: 12/16/20 22:03 Hydroxyzine HCl (Hydroxyzine Hcl 25 Mg Tab) 25 mg PO Q4H PRN PRN Reason: Anxiety Stop: 12/16/20 22:03 Magnesium Hydroxide (Magnesium Hydroxide Susp 30 Ml Udc) 30 ml PO DAILY PRN PRN Reason: Constipation Stop: 12/16/20 22:03 Sodium Chloride (Sodium Chloride 0.65% Na Soln 45 Ml ([place])) 1 - 2 sprays NA PRN PRN PRN Reason: Nasal Dryness/Congestion Stop: 12/16/20 22:03 Mental Health & Subst Abuse Tx Barrel Line Operator Name of Barrel Line Operator: [facility] Phone Number for Barrel Line Operator: [phone] Case Management Appointment Comment: Will call you Post Discharge Appointments Primary Care Physician Name Of Family Doctor: [facility] - Dr. Artis Primary Care Provider Appointment Comment: [facility], [address], [place], [address] Contact Information Discharge Discharge Address: Permanent Address[address] [address] [place], [place] [address] [id number] (1) Major depression Active/Remission status: currently active Major depression episode severity: severe Major depression recurrence: recurrent Psychotic features: without psychotic features Qualified Code(s): F33.2 - Major depressive disorder, recurrent severe without psychotic features (2) Suicidal behavior Attempted self-injury: without attempted self-injury Qualified Code(s): R45.89 - Other symptoms and signs involving emotional state
[2020-11-18] MEDS: ESCITALOPRAM OXALATE 20 MG TAB PO SCH (21:05)
--- NOTE | 2020-11-19 07:50 | Psychiatric Progress Note ---
Date of Service November 19, 2020 Impression / Recommendations Impression H&P Assessment - This 20-year-old college senior reports a long history of recurrent depression. The episodes of depression are often triggered or mitigated by situational factors, and the triggers that are described by the patient seem to center around themes of loss, abandonment, isolation, feelings of inadequacy, and high expressed emotions. He has had approximately 1 year trial of Lexapro 10 mg daily, as prescribed by a primary care physician in his hometown of [place], [place]. He indicates that initially and for a number of months he felt that Lexapro was "definitely" helping him to a significant degree with his depression, has difficulty regulating his mood, and his anxiety. However, for a number of months recently he has noticed that his depression and anxiety have worsened, and he no longer feels that he is receiving substantial benefit from Lexapro 10 mg a day. However, it must be noted that, at least based on what the patient is telling us, his level of functioning is generally quite adequate and the current situation was brought about by a romantic disappointment. Again based on what the patient is saying, the break-up with his girlfriend of at least 5 years was particularly painful because it was unexpected, because he considers himself to be deeply in love with her, she has lived with him (at first and his mother's home, and more recently with him in an apartment in [place]) for the past 5 years, and when talking during today's evaluation about the girlfriend's decision to end the relationship and "move out" he spontaneously referenced the fact that his father had abandoned the family and subsequently never contacted the patient or offered any evidence of interest. The patient is clearly very intelligent, and has expressed an interest in cognitive behavioral therapy. His primary interest at this point is in finding improved individual coping strategies that will allow him to better manage his overwhelming feelings when "triggered" as described above. He also reports a history of responding favorably to Lexapro 10 mg, and the dose was never titrated after the initial benefit seems to have dissipated. The patient was provided with information regarding alternative treatments, including a different antidepressant medication, adjunctive ("booster") medications for Lexapro, and the addition of a mood stabilizer. After consideration of the options, the patient said that he would like to first try an increase in the dose of Lexapro and then would consider other interventions. He also emphasizes that he wants help finding a therapist locally. Reviewed 11/19 - Patient had difficult but necessary meeting with ex- girlfriend/roommate, who set appropriate boundaries and is planning to move out and live with her brother. Pt tolerated this new well, though is admittedly hurt by the dissolving of their relationship. Family supportive of discharge tomorrow based on their availability for transportation. Anticipate PCP bridge appointment, [facility] referrals made for medication management and therapy. (1) Major depression: 11/17 -The patient has been admitted to the [facility] inpatient psychiatric unit at [facility]. He will be offered and encouraged to actively participate in various modalities of psychiatric treatment and education, including individual, group, family, and recreational therapies. He will also be offered psychiatric chemotherapy. He will also be observed closely because of his threat of intentional self injury. Because the patient has advised us that his depression is often exacerbated by various emotional triggers (as described above) we will focus on teaching the patient improved individual coping strategies. -Because the patient has a history of febrile response to Lexapro 10 mg a day, despite the current exacerbation in his symptoms, we will increase the dose of Lexapro to a dose of 20 mg a day, beginning tonight. The patient reports that his only noted side effect is periodic delayed orgasm. Material risks and anticipated benefits of Lexapro were reviewed with the patient and he indicated understanding. -We also talked about the possibility of introducing a mood stabilizer or another psychiatric medication to serve as an adjunct to Lexapro. Also, we reviewed the options of different antidepressant medications, including other selective serotonin reuptake inhibitors as well as selective norepinephrine reuptake inhibitors. 11/18 - Continue escitalopram 20mg qHS - patient denies side effects related to titration of the dose, and is pleased he is feeling more alert. He asked appropriate questions about his medication regimen which were answered. - Productive meeting with mother today 11/19 - Continue current medication regimen - referral made to [facility] for therapy and medication management, will schedule PCP appointment to bridge until these appointments can be scheduled. - Pt had difficult, but necessary meeting with ex-girlfriend/roomate today. Pt will return home with his parents, and girlfriend will be moving out of their apartment to live with her brother. Pt tolerated the news (2) Suicidal behavior: 11/17 -In this case, the admission was precipitated by an episode during which the patient threatened to deliberately harm himself while holding a knife, pursuant to an ongoing argument with his now ex-girlfriend. The patient may be minimizing this episode because his ex-girlfriend did find a note that indicated that he was contemplating harming himself with a knife. The patient, however, says that he was not contemplating suicide, but, instead, was trying to find a way of relieving emotional pain through superficial self-cutting. This will need to be further investigated and collateral information obtained, most likely from his former girlfriend. -The patient describes a history of impulsive behaviors when under emotional distress. He also says that he has never intentionally cause himself physical harm, and has never seriously contemplated suicide. Nevertheless, inpatient psychiatric treatment and the availability of the full spectrum of psychiatric services 24 hours a day is medically necessary because of the severity of his illness, his worsening depression, his substantial psychosocial stressors, and evidence that the threat of harming himself with a kitchen knife was not simply an impulsive act, as evidenced by the note referenced by his girlfriend. 11/18 - Pt denies SI since admission. - Attending group programming and working on development of healthy and effective coping strategies - Family meeting with mother today via phone, planning for meeting with his ex- girlfriend (with whom he resides) tomorrow to discuss discharge situation 11/19 - Pt continues to deny SI - He has been working on developing appropriate and healthy coping skills Inventory Assets Strengths: Intelligent. Motivated to treatment. History of favorable response to antidepressant medications. Supportive family. Supportive friendships. Goal oriented. Needs: Mood stabilization and reduction in impulsive behaviors and depression Risk Factors Assessment Male: Yes : No Do You Have Access To A Gun?: No Health Problems: No Mental Health Diagnoses: Yes Substance Use Disorders: No Previous Attempt: No Family History of Suicide: No Previous Psychiatric Hospitalization: No Hopelessness: No Smoker: No Protective Factors Assessment Uatsdin Beliefs: No : No Responsible for Young Children: No Employed: No Stable Relationships: Yes Supportive Family: Yes Good Rapport with Provider: No Absence of Any Risk Factors Above: No Interval History Identifying Information MARQUIS ROMERO is a 20-year-old M who currently lives in [place] with his ex girlfriend. He has a history of recurrent depression and was admitted on 11/16/20 21:50 on a 201 voluntary agreement after he picked up a knife and threatened to cut himself following a disagreement with the ex-girlfriend. Chief Complaint "Um...a lot to think about. This meeting was not as good as my last one." Review of Systems Notes Constitutional: denied Cardiovascular: denied Respiratory: denied Gastrointestinal: denied Neurological: denied Psychiatric: denies symptoms other than stated above Total of at least 10 systems reviewed, pertinent positives as above and in HPI. Sleep Information Total Hours of Sleep: 6 Sleep Comments: pt on q-15 minute checks Meal Information Percent Meal Consumed - Breakfast: 100 Percent Meal Consumed - Lunch: 100 Percent Meal Consumed - Dinner: 100 Subjective Subjective Patient was seen & assessed and interval progress reviewed with nursing and social work. Staff report the patient has been participating in group programming. He had a positive meeting with mother yesterday, but admitted he was "worried" about today's meeting with his ex-girlfriend/roommate. Pt rated his mood a 06/09 last evening. Pt was seen today after his meeting to assess progress since admission. He did states "Um...a lot to think about. This meeting was not as good as my last one." Pt states that he went into the meeting with intentions to set boundaries with regard to their living situation. He states "the boundary she wanted to set was not living together." Pt admits that, while it was difficult to hear this news, he was understanding. He states he was proud of his ability to "communicate some things that maybe I should have said sooner." He states that he values their friendship and was hopeful to not lose this, though he recognized that they needed some time apart and physical space. We discussed the importance of this woman to him with regard to friendship, but also feeling like another member of the family. Pt states "I was having the cognitive distortion of catastrophizing. I just kept focusing on her moving on to someone else soon, and not knowing how I would handle that. The therapist and I talked about it though. I felt like I needed to tell my ex that, so I called her. She reassured me that the reason she ended the relationship was to spend some time finding herself, not to get involved with anyone quickly. That felt good to hear." We continued to process this news, and patient was open to discussing. It was suggested he consider reading Codependent No More and was provided with the [facility] copy for reference. Pt continues to deny SI and is hopeful to return home with his family soon. Overall, he reports improvement in symptoms and feels his stay has been beneficial thus far. Physical Exam Psychiatric Orientation: alert, oriented x 3 and cooperative Apperance: appropriately dressed, appropriately groomed and appeared stated age Eye Contact: good eye contact Motor Behavior: steady gait and station and no abnormal motor movements Speech: normal rate/rhythm/volume of speech Affect: + blunted affect (somewhat more subdued today) Mood: no depressed mood (admits to feeling lower after the meeting, but denies pervasively low mood) Thought Process: goal directed thought process and clear/coherent thought process Thought Content: reality based without delusions and + loneliness (related to break-up); no hopelessness and no worthlessness Suicidal Thoughts: denies suicidal thoughts, denies suicidal plan and denies suicidal intent Homicidal Thoughts: denies homicidal thoughts Hallucinations: no auditory hallucinations and no visual hallucinations Cognition: recent memory grossly intact, attention grossly intact and language grossly intact Estimated Intelligence: consistent with education level Insight: + fair insight Judgement: + fair judgement Vital Signs (Past 24 Hours) Last Vital Signs Temp 36.6 C 11/19/20 06:47 Pulse 90 11/19/20 06:48 Resp 16 11/19/20 06:47 BP 137/71 11/19/20 06:48 Pulse Ox 98 11/16/20 21:45 Results & Data ([facility]) Current Inpatient Medications Current Inpatient Medications: Current Inpatient Medications Acetaminophen (Acetaminophen 325 Mg Tab) 650 mg PO Q4H PRN PRN Reason: Headache or Minor Fever Stop: 12/16/20 22:03 Al Hydrox/Mg Hydrox/Simethicone (Aluminum/Magnesium Susp 30 Ml Udc) 30 ml PO Q4H PRN PRN Reason: GI Upset Stop: 12/16/20 22:03 Bismuth Subsalicylate (Bismuth Subsalicylate Liqd 236 Ml) 15 ml PO PRN PRN PRN Reason: Loose Stool Stop: 12/16/20 22:03 Escitalopram Oxalate (Escitalopram Oxalate 20 Mg Tab) 20 mg PO HS LIEN Stop: 12/17/20 21:59 Last Admin: 11/18/20 21:05 Dose: 20 mg Documented by: Hydroxyzine HCl (Hydroxyzine Hcl 25 Mg Tab) 50 mg PO HSZ PRN PRN Reason: Insomnia Stop: 12/16/20 22:03 Hydroxyzine HCl (Hydroxyzine Hcl 25 Mg Tab) 25 mg PO Q4H PRN PRN Reason: Anxiety Stop: 12/16/20 22:03 Magnesium Hydroxide (Magnesium Hydroxide Susp 30 Ml Udc) 30 ml PO DAILY PRN PRN Reason: Constipation Stop: 12/16/20 22:03 Sodium Chloride (Sodium Chloride 0.65% Na Soln 45 Ml ([place])) 1 - 2 sprays NA PRN PRN PRN Reason: Nasal Dryness/Congestion Stop: 12/16/20 22:03 Mental Health & Subst Abuse Tx [employer] Name of [employer]: [employer] [facility] Phone Number for [employer]: [phone] Case Management Appointment Comment: Will call you Post Discharge Appointments Primary Care Physician Name Of Family Doctor: [facility] - Dr. Artis Primary Care Provider Appointment Comment: [address] [place] [address], [address], [place], [address] Contact Information Discharge Discharge Address: Permanent Address: [address] [place] [id number] (1) Major depression Active/Remission status: currently active Major depression episode severity: severe Major depression recurrence: recurrent Psychotic features: without psychotic features Qualified Code(s): F33.2 - Major depressive disorder, recurrent severe without psychotic features (2) Suicidal behavior Attempted self-injury: without attempted self-injury Qualified Code(s): R 45.89 - Other symptoms and signs involving emotional state
[2020-11-19] MEDS: ESCITALOPRAM OXALATE 20 MG TAB PO SCH (21:25)
--- NOTE | 2020-11-20 08:34 | Discharge Summary ---
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 He presented to the emergency room for evaluation after he reportedly picked up a kitchen knife and threatened to cut himself with it, pursuant to an argument that he had had with a woman who had just recently become his former girlfriend. The patient reports that he has suffered from recurrent episodes of depression throughout much of his life, and his feelings of depression are often exacerbated by circumstances that caused him to feel isolated, abandoned, or inadequate. He acknowledges that in many instances these feelings represent a distortion of the reality, but he adds that when one of his "triggers" occurs, he has a great deal of difficulty coping and reducing his impulse to act impulsively. By way of background, the patient reports that he was raised by a single mother in [place], [place]. His father left the family when the patient was 1 years old, and the patient has no memory of his father. However, the patient says that he has had thoughts throughout the years that there might have been something wrong with him; i.e., the patient, because his father obviously did not want to be part of the pat ient's life in any way. He describes his childhood as being free of abuse or neglect, but he also notes that because his mother was single and the sole support of the family (the family consisting of the patient and his mother) she worked much of the time. There were no second-degree relatives such as grandparents to assist, and so he often spent time in daycare and, later on, became a "latchkey kid." Feelings of depression began fairly early in childhood and included depressed mood, crying spells, psychosocial withdrawal, poor concentration, anhedonia, and anxious distress. When he was about 15 years old his high school girlfriend came to live with the patient and his mother after the girlfriend was orphaned. (The patient reports that the girlfriend's father had when she was a child, and her mother of an accidental drug overdose when the girlfriend was 15.) Subsequent to this, the patient lived with his girlfriend, and first at home with his mother (and, later, when a sibling was born when the patient was 16) and, more recently, in [place] while the patient attended school at [employer]. According to the patient, about a week or so ago the girlfriend approached him and told him that she wanted to end the relationship because she had never experienced being on her own, and she would like to experiment in this regard. The patient reports that this announcement came as quite a shock to him and he wondered about the reasons for her making such a decision while he was under a great deal of stress because it was "." Reportedly, the girlfriend left the home for 1 day, but returned the next day and announced that she plan to continue to share the dwelling with the patient, but that this would be without any attendant romantic involvement. The patient notes that he attempted to seek clarification about this, and specifically ask if the arrangement would be that they were to live together, but they could both find alternative romantic partners. He notes that her response was very confusing because she said that she was not interested in finding "someone else," and added that if she were to be looking for a romance that would be with no one other than with him, with reference to the patient. At some point, within the context of the above circumstances, the patient and his girlfriend had a heated argument, and it was within that context that the patient became so distressed that, according the patient, he did turkey picker a knife and threatened to cut himself with it. However, he notes that his intent was not to commit suicide but, rather, to superficially cut himself in order to relieve emotional distress/pain. Nevertheless, the patient notes that even if not actively suicidal he recognizes that his mental health has been de teriorating for at least the past year. His depression has been worse, and his ability to tolerate emotional "triggers" has only worsened. He has been taking Lexapro 10 mg a day as prescribed by the primary care provider about a year ago. The patient notes that he had what he now realizes was probably a placebo effect because he noticed that his mood improved substantially within a day or 2 of starting Lexapro. This time, however, he recognized that his improved mood and anxiety reduction was being sustained, and his conclusion was that Lexapro was offering substantial benefit apart from the initial placebo effect. He had also attempted to enter psychotherapy (in [place]) but said that he felt that he and the therapist were not a good match. He remained in therapy for several months, but eventually quit. Of note is the fact that the patient acknowledges that, recently, he has not been taking his consistently, but may miss "maybe a couple doses" each week. The patient reports that he has never taken any other psychiatric medication and the dose of Lexapro has never been increased beyond 10 mg. For the past several months, at least, the patient says that he no longer feels that Lexapro at 10 mg has been helpful and that he is "just taking it" out of habit. Physical Exam Psychiatric Orientation: alert and cooperative Apperance: appropriately dressed, appropriately groomed and appeared stated age Seated in no acute distress. Calm, cooperative, pleasant. Eye Contact: good eye contact Motor Behavior: steady gait and station and no abnormal motor movements Speech: normal rate/rhythm/volume of speech Affect: euthymic affect and mood congruent with affect "Much better." Thought Process: goal directed thought process and linear/logical thought process Thought Content: reality based without delusions Suicidal Thoughts: denies suicidal thoughts Homicidal Thoughts: denies homicidal thoughts Hallucinations: no auditory hallucinations Cognition: recent memory grossly intact, attention grossly intact and language grossly intact Estimated Intelligence: consistent with education level Insight: good insight Judgement: good judgement Vital Signs (Past 24 Hours) Last Vital Signs Temp 36.6 C 11/20/20 06:35 Pulse 90 11/20/20 06:36 Resp 16 11/20/20 06:35 BP 104/71 11/20/20 06:36 Pulse Ox 98 11/16/20 21:45 Principal Diagnosis Major depressive disorder, recurrent, severe without psychosis Psychiatric Data The patient was hospitalized for 4 days. On admission, escitalopram was increased to 20 mg daily to target depression, and he tolerated this well. He attended and participated in unit programming, processed his presenting stressors, primarily the break-up with his girlfriend, and mood improved. He consistently denied suicidal thoughts and urges to self injure, and demonstrated good behavioral control throughout his hospitalization. He demonstrated good appetite and sleep. He had a family meeting with his mother on the social secretary on 11/18/2020, and talked about wanting to be more open with her about his mental health. They discussed the need for more outpatient supports, noting that the police had come to the home to do a safety check on him last summer, and although he was referred to a therapist through his PCPs office, appointments were only on an as-needed basis. I discussed the break-up with his girlfriend, further complicated as she is very close with his parents, and made a plan for the patient to move home with his parents for a time after discharge. He had a second family meeting with social secretary and his ex-girlfriend on 11/19/2020, during which they discussed their relationship, and he stated he would like to still live together, but his girlfriend enforce boundaries that they could be friends, but not live together. He was referred for outpatient therapy and psychiatric care. Day of Discharge Assessment Staff report the patient has been attending a participating in groups and therapy, socializing with peers, and tending to ADLs independently. On my assessment, he reports mood has improved significantly since admission, denies suicidal thoughts, and is able to review his discharge safety plan. He states he is anxious about discharge, but feels "ready to get back to reality," and feels safe leaving the hospital. He is able to review the coping skills and safety plan he has developed here. He thinks medication is helping and denies side effects. He states willingness to follow up with outpatient mental health treatment. Transition of Care Transition Of Care Record: was reviewed with the patient Advance Directives Advance Directives Information Provided: Yes Advance Directives: No Mental Health Advance Directive: No Advance Directives on File: No Living Will: No Power of Fitness Sales Associate: No Advance Directives Reason:: Declines as Mental Health Visit. Risk Factors Assessment Risk factors were mitigated by admission to the inpatient unit, use of medications to target depressive symptoms, family meetings with his mother and ex-girlfriend, involving him in groups and therapy, working on healthy coping skills and discharge safety plan, and referring him for outpatient mental health treatment. He is demonstrating improved mood, resolution of suicidal thoughts, is eating and sleeping well, and taking medication as prescribed. He is no longer at acute risk of harm to himself, so can be managed as an outpatient at this time. He is not at increased risk for harm to others. Male: Yes : No Do You Have Access To A Gun?: No Health Problems: No Mental Health Diagnoses: Yes Substance Use Disorders: No Previous Attempt: No Family History of Suicide: No Previous Psychiatric Hospitalization: No Hopelessness: No Smoker: No Protective Factors Assessment Holiness Beliefs: No : No Responsible for Young Children: No Employed: No Stable Relationships: Yes Supportive Family: Yes Good Rapport with Provider: No Absence of Any Risk Factors Above: No Tobacco Cessation at Discharge Tobacco Cessation Medication Prescribed at Discharge: Not Applicable/Non-Smoker Total Time Total Time Spent: Greater Than 30 Minutes Total Time Includes: Examination of the patient, Discharge Planning and Medication Reconciliation Discharge Data Lab Results 11/16/20 11/16/20 11/16/20 17:19 17:19 17:19 WBC 8.06 RBC 4.73 Hgb 15.0 Hct 41.6 L MCV 87.9 MCH 31.7 MCHC 36.1 H RDW Std Deviation 38.3 RDW Coeff of Jay 11.9 Plt Count 183 MPV 11.3 H Immature Gran % (Auto) 0.1 Neut % (Auto) 82.3 Lymph % (Auto) 11.3 [place] % (Auto) 5.8 Eos % (Auto) 0.4 Baso % (Auto) 0.1 Neut # (Auto) 6.63 H Lymph # (Auto) 0.91 L [place] # (Auto) 0.47 Eos # (Auto) 0.03 Baso # (Auto) 0.01 Immature Gran # (Auto) 0.01 Sodium 142 Potassium 3.8 Chloride 108 H Carbon Dioxide 29 Anion Gap 5.0 BUN 12 Creatinine 0.95 Est Cr Clr Drug Dosing 135.0 Est GFR ( Amer) 132.1 Est GFR (Non-Af Amer) 114.0 BUN/Creatinine Ratio 12.5 Glucose 101 H Calcium 9.1 Total Bilirubin 0.4 AST 12 L ALT 27 Alkaline Phosphatase 76 Total Protein 7.8 Albumin 4.5 Globulin 3.3 Albumin/Globulin Ratio 1.4 TSH 1.200 Urine Color Urine Appearance Urine pH Ur Specific [place] Urine Protein Urine Glucose (UA) Urine Ketones Urine Blood Urine Nitrite Urine Bilirubin Urine Urobilinogen Ur Leukocyte Esterase Urine WBC (Auto) Urine RBC (Auto) U Hyaline Cast (Auto) U Epithel Cells (Auto) Urine Bacteria (Auto) Salicylates < 1.7 L Urine Opiates Screen Ur Methadone, Qual Acetaminophen < 2 L Urine Barbiturates Ur Phencyclidine (PCP) U Amphetamin/Meth Scrn MDMA (Ecstasy) Screen U Benzodiazepines Scrn Ur Cocaine Metabolite U Marijuana (THC) Screen Ethyl Alcohol mg/dL SARS-CoV-2 Ag (Rapid) 11/16/20 11/16/20 11/16/20 17:19 17:40 17:40 WBC RBC Hgb Hct MCV MCH MCHC RDW Std Deviation RDW Coeff of Jay Plt Count MPV Immature Gran % (Auto) Neut % (Auto) Lymph % (Auto) [place] % (Auto) Eos % (Auto) Baso % (Auto) Neut # (Auto) Lymph # (Auto) [place] # (Auto) Eos # (Auto) Baso # (Auto) Immature Gran # (Auto) Sodium Potassium Chloride Carbon Dioxide Anion Gap BUN Creatinine Est Cr Clr Drug Dosing Est GFR ( Amer) Est GFR (Non-Af Amer) BUN/Creatinine Ratio Glucose Calcium Total Bilirubin AST ALT Alkaline Phosphatase Total Protein Albumin Globulin Albumin/Globulin Ratio TSH Urine Color Dark Yellow Urine Appearance Clear Urine pH 6.5 Ur Specific [place] 1.035 H Urine Protein Trace H Urine Glucose (UA) Negative Urine Ketones Trace H Urine Blood Negative Urine Nitrite Negative Urine Bilirubin Negative Urine Urobilinogen Negative Ur Leukocyte Esterase Negative Urine WBC (Auto) 1-5 Urine RBC (Auto) 0-4 U Hyaline Cast (Auto) 10-30 H U Epithel Cells (Auto) 20-30 H Urine Bacteria (Auto) Negative Salicylates Urine Opiates Screen Neg Ur Methadone, Qual Neg Acetaminophen Urine Barbiturates Neg Ur Phencyclidine (PCP) Neg U Amphetamin/Meth Scrn Neg MDMA (Ecstasy) Screen Neg U Benzodiazepines Scrn Neg Ur Cocaine Metabolite Neg U Marijuana (THC) Screen Neg Ethyl Alcohol mg/dL < 3.0 SARS-CoV-2 Ag (Rapid) 11/16/20 19:38 WBC RBC Hgb Hct MCV MCH MCHC RDW Std Deviation RDW Coeff of Jay Plt Count MPV Immature Gran % (Auto) Neut % (Auto) Lymph % (Auto) [place] % (Auto) Eos % (Auto) Baso % (Auto) Neut # (Auto) Lymph # (Auto) [place] # (Auto) Eos # (Auto) Baso # (Auto) Immature Gran # (Auto) Sodium Potassium Chloride Carbon Dioxide Anion Gap BUN Creatinine Est Cr Clr Drug Dosing Est GFR ( Amer) Est GFR (Non-Af Amer) BUN/Creatinine Ratio Glucose Calcium Total Bilirubin AST ALT Alkaline Phosphatase Total Protein Albumin Globulin Albumin/Globulin Ratio TSH Urine Color Urine Appearance Urine pH Ur Specific [place] Urine Protein Urine Glucose (UA) Urine Ketones Urine Blood Urine Nitrite Urine Bilirubin Urine Urobilinogen Ur Leukocyte Esterase Urine WBC (Auto) Urine RBC (Auto) U Hyaline Cast (Auto) U Epithel Cells (Auto) Urine Bacteria (Auto) Salicylates Urine Opiates Screen Ur Methadone, Qual Acetaminophen Urine Barbiturates Ur Phencyclidine (PCP) U Amphetamin/Meth Scrn MDMA (Ecstasy) Screen U Benzodiazepines Scrn Ur Cocaine Metabolite U Marijuana (THC) Screen Ethyl Alcohol mg/dL SARS-CoV-2 Ag (Rapid) Negative Hospital Course (1) Major depression: 11/17 -The patient has been admitted to the locked inpatient psychiatric unit at [facility]. He will be offered and encouraged to actively participate in various modalities of psychiatric treatment and education, including individual, group, family, and recreational therapies. He will also be offered psychiatric chemotherapy. He will also be observed closely because of his threat of intentional self injury. Because the patient has advised us that his depression is often exacerbated by various emotional triggers (as described above) we will focus on teaching the patient improved individual coping strategies. -Because the patient has a history of febrile response to Lexapro 10 mg a day, despite the current exacerbation in his symptoms, we will increase the dose of Lexapro to a dose of 20 mg a day, beginning tonight. The patient reports that his only noted side effect is periodic delayed orgasm. Material risks and anticipated benefits of Lexapro were reviewed with the patient and he indicated understanding. -We also talked about the possibility of introducing a mood stabilizer or another psychiatric medication to serve as an adjunct to Lexapro. Also, we reviewed the options of different antidepressant medications, including other selective serotonin reuptake inhibitors as well as selective norepinephrine reuptake inhibitors. 11/18 - Continue escitalopram 20mg qHS - patient denies side effects related to titration of the dose, and is pleased he is feeling more alert. He asked appropriate questions about his medication regimen which were answered. - Productive meeting with mother today 11/19 - Continue current medication regimen - referral made to [facility] for therapy and medication management, will schedule PCP appointment to bridge until these appointments can be scheduled. - Pt had difficult, but necessary meeting with ex-girlfriend/roomate today. Pt will return home with his parents, and girlfriend will be moving out of their apartment to live with her brother. Pt tolerated the news 11/20 -Continue escitalopram 20 mg daily; prescription #30-day supply. -Referred to [facility] for psychiatry and therapy, they will directly for appointments. (2) Suicidal behavior: 11/17 -In this case, the admission was precipitated by an episode during which the patient threatened to deliberately harm himself while holding a knife, pursuant to an ongoing argument with his now ex-girlfriend. The patient may be minimizing this episode because his ex-girlfriend did find a note that indicated that he was contemplating harming himself with a knife. The patient, however, says that he was not contemplating suicide, but, instead, was trying to find a way of relieving emotional pain through superficial self-cutting. This will need to be further investigated and collateral information obtained, most likely from his former girlfriend. -The patient describes a history of impulsive behaviors when under emotional distress. He also says that he has never intentionally cause himself physical harm, and has never seriously contemplated suicide. Nevertheless, inpatient psychiatric treatment and the availability of the full spectrum of psychiatric services 24 hours a day is medically necessary because of the severity of his illness, his worsening depression, his substantial psychosocial stressors, and evidence that the threat of harming himself with a kitchen knife was not simply an impulsive act, as evidenced by the note referenced by his girlfriend. 11/18 - Pt denies SI since admission. - Attending group programming and working on development of healthy and effective coping strategies - Family meeting with mother today via phone, planning for meeting with his ex- girlfriend (with whom he resides) tomorrow to discuss discharge situation 11/19 - Pt continues to deny SI - He has been working on developing appropriate and healthy coping skills Mental Health & Subst Abuse Tx Psychiatrist Name of Psychiatrist: [facility] Comment: They will contact patient directly to schedule Therapist Name of Therapist: [facility] Comment: They will contact patient directly to schedule Card Setter Name of Card Setter: [facility] Phone Number for Card Setter: [phone] Case Management Appointment Comment: Will call you Post Discharge Appointments [facility] Date of Appointment with PCP: 11/29/20 Time of Appointment with PCP: 11:30 a.m. (please arrive 15-20 minutes early) Provider Appointment Comment: In person - [address] [address], [place], [address] Smoking Cessation Counseling Tobacco Cessation Medication Prescribed at Discharge: Not Applicable/Non-Smoker Contact Information Discharge Discharge Address: Permanent Address: [address] [place] [id number] Discharge Plan Discharge Items Patient Disposition: Home - Self-Care Reason For Visit: MHID Discharge Diagnosis: Depression Activity: Per Instructions section Non-emergency contact: Primary Care Provider, Psychiatrist and Therapist Call non-emergency contact if: you have any medication questions and your symptoms worsen Follow-up/Referrals: PCP,NO [Primary Care Provider] - Diet: Regular Addtl Attending Provider Instructions: SPECIAL CARE INSTRUCTIONS: 1. Follow through with your scheduled aftercare appointments. If unable to keep an appointment, please call to reschedule. 2. Take your medication only as prescribed. Medication should not be changed or stopped without the approval of your doctor. In the event of worsening symptoms or concerns about side effects, contact your doctor immediately. 3. Utilize new healthy coping skills, anger management skills, and stress management skills learned during your hospitalization. Journal feelings and process them with a support person. Identify stressors or situations that may result in relapse, deterioration or inappropriate behaviors and develop a plan to deal with those issues. 4. If your coping skills are ineffective and you are in crisis, contact your outpatient providers for direction. If unable to reach your providers, please call the [facility] CRISIS LINE AT , go to the [facility] walk-in center at [address], [address], [place], or go to the closest Emergency Room. 5. Avoid alcohol and un-prescribed drugs. 6. You have been provided with the Mental Health Advance Directives Pamphlet for your review. AFTERCARE APPOINTMENTS: * Please call your insurance company prior to your scheduled appointment to confirm your aftercare providers are covered. Take your insurance information to your appointments. WHO TO CALL AND WHEN: Medical Emergencies: For questions or emergencies related to your hospital stay, please contact the Inpatient Behavioral Health Unit at [phone]. A cloth tester quality is on-call 23/06 for the Behavioral Health Unit for emergencies At any time you feel your situation is an emergency, you may also call 911 immediately. Pending Studies at Discharge: No Stand-Alone Forms: My [facility], Smoking Cessation Medications and DC Order Prescriptions: New escitalopram oxalate 20 mg Tablet 20 mg PO HS 30 Days Qty: 30 RF: 0 Discontinued escitalopram oxalate [Lexapro] 10 mg tablet 10 mg PO DAILY RF: 0 Discharge Orders: Discharge Order (Routine); Ordered 11/20/20 Ordered By: Aracelis Joseph Admission Data Admit Date/Time: 11/16/20 21:50 Attending Provider: Mendez Arreaga Admit Provider: Roman Orr Primary Care Provider: PCP,NO Other Interventions: Discharge Summary Assessment (RN) Last Done: 11/20/20 09:48 PSY Interdisciplinary Discharge Planning Last Done: 11/20/20 10:42 Coding Level of Care Code 56508 D/C day mgmt > 30 min Diagnoses Major depression F33.2 Active/Remission status: currently active Major depression episode severity: severe Major depression recurrence: recurrent Psychotic features: without psychotic features Suicidal behavior R45.89 Attempted self-injury: without attempted self-injury
== END 2020-11-20 10:56 | disposition home or self-care (01) | DRG 885 ==
LOC: ED 16:48 → 3S 21:45